=== PATIENT | female | born 1985 | race Caucasian/White ===

== ENCOUNTER 2017-01-24 08:24 | Emergency (ER) | END 2017-01-24 10:29 | disposition home or self-care (01) | DX: R07.9 Chest pain, unspecified (principal); F17.210 Nicotine dependence, cigarettes, uncomplicated; Z91.040 Latex allergy status ==

== ENCOUNTER 2017-07-08 01:49 | Emergency (ER) | payer SELFPAY ==
[~2017-07-08] VITALS: Ht 162.6 cm; Wt 103.0 kg
[~2017-07-08 01:49] MED LIST: CALC-649; CARB15DR50 BOTH EARS; CLOT30CR24 TOP; FERR27TA; FOLI0.4T2; IBUP-1542 PO; OMEG1CAP90; PREN-39
[2017-07-08 01:53] VITALS: Ht 162.6 cm; Wt 103.0 kg
== END 2017-07-08 05:13 | disposition left against medical advice (07) ==
LOC: FTE 01:49
DX: Z53.21 Procedure and treatment not carried out due to patient leaving prior to being seen by health care provider (principal)